=== PATIENT | female | born 1980 | race African-American/Black ===

== ENCOUNTER 2023-05-25 18:35 | Inpatient (IN) | payer OTHER ==
[2023-05-25 19:05] VITALS: BMI 22.3
[2023-05-25] MEDS ORDERED: IBUPROFEN 400 MG TABLET (FP) PO PRN (19:34)
[2023-05-25] MEDS ORDERED: BISMUTH SUBSALICYLATE 524 MG/30 ML PO PRN (19:34)
[2023-05-25] MEDS ORDERED: BENZOCAINE/MENTHOL (CHLORASEPTIC ) LOZENGE MM PRN (19:34)
[2023-05-25] MEDS ORDERED: LOPERAMIDE HCL 2 MG CAPSULE PO PRN (19:34)
[2023-05-25] MEDS ORDERED: POLYETHYLENE GLYCOL (HEALTHYLAX) 3350 17 GM PACKET PO PRN (19:34)
[2023-05-25] MEDS ORDERED: NALOXONE HCL 0.4 MG/ML VIAL IM PRN (19:34)
[2023-05-25] MEDS ORDERED: BENZONATATE 200 MG CAPSULE PO PRN (19:34)
[2023-05-25] MEDS ORDERED: guaiFENesin 600 MG TABLET.ER (FP) PO PRN (19:34)
[2023-05-25] MEDS ORDERED: MAGNESIUM HYDROX 2400MG/30ML ORAL SUSPENSION 30 ML CUP PO PRN (19:34)
[2023-05-25] MEDS ORDERED: NALOXONE HCL (KLOXXADO) 8 MG SPRAY NS PRN (19:34)
[2023-05-25] MEDS ORDERED: METHOCARBAMOL 500 MG TABLET ONE (21:18)
[2023-05-25] MEDS ORDERED: hydrOXYzine PAMOATE 25 MG CAPSULE (FP) PO ONE (21:18)
[2023-05-25] MEDS: METHOCARBAMOL 500 MG TABLET PO PRN (21:20)
[2023-05-25] MEDS: hydrOXYzine PAMOATE 25 MG CAPSULE (FP) PO PRN (21:20)
[2023-05-25] MEDS ORDERED: cloNIDine HCL 0.1 MG TABLET ONE (22:20)
[2023-05-25] MEDS ORDERED: MELATONIN 5 MG TABLETS ONE (22:20)
[2023-05-25] MEDS: THIAMINE HCL 100 MG TABLET (FP) PO SCH (22:21)
[2023-05-25] MEDS: MELATONIN 5 MG TABLETS PO SCH (22:21)
[2023-05-25] MEDS: cloNIDine HCL 0.1 MG TABLET PO ONE (22:21)
[2023-05-26] MEDS: PRENATAL VITAMINS W/ FOLIC ACID TABLET (FP) PO SCH (10:21)
[2023-05-26 11:58] LABS: CHLORIDE 108 mmol/L (98-107); POTASSIUM 4.3 mmol/L (3.5-5.1); SODIUM 139 mmol/L (136-145)
[2023-05-26 12:01] LABS: ALBUMIN 2.7 g/dl (3.4-5.0); ANION GAP 6 mmol/L (4-13); BLOOD UREA NITROGEN 14.8 mg/dL (7-18); CALCIUM 8.5 mg/dL (8.5-10.1); CO2 26 mmol/L (21-32); GLUCOSE,RANDOM 106 mg/dL (74-106)
[2023-05-26 12:03] LABS: SGPT/ALT 18 U/L (13-61)
[2023-05-26 12:04] LABS: CREATININE 0.7 mg/dL (0.55-1.3); HEMATOCRIT 31.5 % (32.4-45.2); HEMOGLOBIN 9.9 GM/dL (10.7-15.3); MCH 21.4 pg (25.7-33.7); MCHC 31.4 g/dl (32.0-36.0); MEAN CELL VOLUME 68.3 fl (80-96); MEAN PLT VOLUME 8.2 fl (7.5-11.1); PLATELET COUNT 264 10^3/uL (134-434); RBC 4.62 M/mm3 (3.60-5.2); RDW 20.1 % (11.6-15.6); SGOT/AST 17 U/L (15-37); WHITE BLOOD COUNT 8.7 K/mm3 (4.0-10.0)
[2023-05-26 12:06] LABS: BILIRUBIN,TOTAL 0.1 mg/dL (0.2-1); TOT PROT 6.6 g/dl (6.4-8.2)
[2023-05-26 12:07] LABS: ALK PHOS 81 U/L (45-117)
[2023-05-26] MEDS: IBUPROFEN 600 MG TABLET (FP) PO PRN (17:33)
[2023-05-27] MEDS: ONDANSETRON *ODT* 4 MG TABLET SL PRN (10:21)
[2023-05-27] MEDS ORDERED: chlordiazePOXIDE HCL 25 MG CAPSULE PO PRN (10:28)
[2023-05-27] MEDS: chlordiazePOXIDE HCL 25 MG CAPSULE PO SCH (11:54)
[2023-05-27] MEDS: MAG HYDROX/AL HYDROX/SIMETH 30 ML UNIT-DOSE CUP PO PRN (17:26)
[2023-05-27] MEDS: ACETAMINOPHEN 325 MG TABLET (FP) PO PRN (19:09)
[2023-05-27] MEDS: cloNIDine HCL 0.1 MG TABLET PO PRN (21:20)
[2023-05-28] MEDS: DICYCLOMINE HCL 10 MG CAPSULE PO PRN (06:35)
[2023-05-28 17:07] VITALS: RESP 18
[2023-05-29] MEDS: chlordiazePOXIDE HCL 25 MG CAPSULE PO SCH (05:29)
[2023-05-29 08:50] VITALS: BP 132/81; PULSE 87; TEMP 96.9
[2023-05-30] MEDS ORDERED: chlordiazePOXIDE HCL 10 MG CAPSULE PO PRN
[2023-05-30] MEDS ORDERED: chlordiazePOXIDE HCL 10 MG CAPSULE PO SCH (05:00)
[2023-05-31] MEDS ORDERED: chlordiazePOXIDE HCL 10 MG CAPSULE PO SCH (05:00)
[2023-06-01] MEDS ORDERED: chlordiazePOXIDE HCL 10 MG CAPSULE PO ONE (05:00)
== END 2023-05-29 09:07 | disposition left against medical advice (07) | DRG 770 ==
LOC: YASAS 18:35 → Y3N 20:59
PROVIDERS: ADMIT Allergy & Immunology; ATTEND Family Medicine
PROC: HZ2ZZZZ Detoxification Services for Substance Abuse Treatment (ICD-10-PCS; principal; 2023-05-25)
DX: F10.230 Alcohol dependence with withdrawal, uncomplicated (principal); F14.20 Cocaine dependence, uncomplicated; F13.10 Sedative, hypnotic or anxiolytic abuse, uncomplicated; F15.10 Other stimulant abuse, uncomplicated; F17.210 Nicotine dependence, cigarettes, uncomplicated; I10 Essential (primary) hypertension
CPT/HCPCS: 36415; 80053; 80307; 81025; 85027; 86780; 87070; 87635; 87811; Q0162